=== PATIENT | male | born 1960 | race Two or more races ===

== ENCOUNTER 2018-11-01 06:06 | Day surgery (SDC) | payer OTHER ==
[~2018-11-01] VITALS: Ht 167.6 cm; Wt 117.9 kg
[~2018-11-01 06:06] MED LIST: CARAFATE PO; DELTASONE20 MG PO; LEVAQUIN750 MG PO; LISINOPRIL20 MG PO; [UNRECOGNIZED DRUG - OTHER] PO
== END 2018-11-01 14:45 | disposition home or self-care (01) ==
LOC: CIR.AMB 06:06
DX: K43.6 Other and unspecified ventral hernia with obstruction, without gangrene (principal)